=== PATIENT | female | born 1995 | race Caucasian/White ===

== ENCOUNTER 2019-06-26 22:46 | Emergency (ER) | payer OTHER, MEDICAID, SELFPAY ==
[2019-06-26 22:59] VITALS: BP 122/66; PULSE 112; RESP 16; TEMP 37.1; O2SAT 100
[2019-06-27] VITALS: BP 116/73; PULSE 108; RESP 20; TEMP 36.8; O2SAT 98
--- NOTE | 2019-06-27 00:21 | ED.GENADULT ---
HPI - General Adult General Chief complaint: Upper Respiratory Infection Stated complaint: WELCH, ST, cough x 2 weeks Time Seen by Provider: 06/27/19 00:20 Source: patient Mode of arrival: ambulatory Limitations: no limitations History of Present Illness HPI narrative: Patient is here for cold symptoms and nasal congestion. She has been taking [id number] DayQuil. She is complaining of 2 weeks of intermittent hot flashes and cough. She is 26 weeks and will have her first OB appointment here next week prior to that she is that had received care in [facility]. She has not had fever she is eating and drinking just fine. And she reports that the baby is quite active. Onset (ago): day(s) Radiation: non-radiation Associated symptoms: denies other symptoms Related Data Allergies Allergy/AdvReac Type Severity Reaction Status Date / Time No Known Allergies Allergy Verified 05/10/19 23:16 Review of Systems Review of Systems: All systems reviewed & are unremarkable except as noted in HPI and below PMFSH Past Medical History Medical History Healthy adolescent Surgical History Surgical History No pertinent past surgical history Social History Social History Smoking status: Former smoker Gender identity (if verbalized by the patient): Female Exam Const: General: no acute distress and alert Orientation/consciousness: patient oriented x3 HENMT: Ears: TM's normal bilaterally General nose exam: Abnormal mucous membranes and turbinates present (swollen) erythematous Mouth: Yes moist mucous membranes Throat: posterior oropharynx normal Eyes: Pupils: Equal, round and reactive pupils present Resp: Effort & Inspection: normal respiratory effort Auscultation: clear to auscultation bilaterally Cardio: Rate: regular rate Rhythm: regular rhythm GI: Inspection: other (gravid) Skin: General skin exam: normal color Rashes: no rashes Neuro: General: patient oriented x3 and moves all extremities Extrem: General: normal to inspection Course Vital Signs Vital signs: Vital Signs Temperature 37.1 C 06/26/19 22:59 Pulse Rate 112 H 06/26/19 22:59 Respiratory Rate 16 06/26/19 22:59 Blood Pressure 122/66 06/26/19 22:59 Pulse Oximetry 100 06/26/19 22:59 Temperature 36.8 C 06/27/19 00:00 Pulse Rate 108 H 06/27/19 00:00 Respiratory Rate 20 06/27/19 00:00 Blood Pressure 116/73 06/27/19 00:00 Pulse Oximetry 98 06/27/19 00:00 Medical Decision Making Vital Signs Vital Signs: Vital Signs Temperature 37.1 C 06/26/19 22:59 Pulse Rate 112 H 06/26/19 22:59 Respiratory Rate 16 06/26/19 22:59 Blood Pressure 122/66 06/26/19 22:59 Pulse Oximetry 100 06/26/19 22:59 Temperature 36.8 C 06/27/19 00:00 Pulse Rate 108 H 06/27/19 00:00 Respiratory Rate 20 06/27/19 00:00 Blood Pressure 116/73 06/27/19 00:00 Pulse Oximetry 98 06/27/19 00:00 Lab Data Labs: Influenza A Screen Negative Reference Range: Negative Influenza B Screen Negative Reference Range: Negative Discharge Plan Discharge Clinical Impression: URI (upper respiratory infection) Qualifiers: URI type: unspecified viral URI Qualified Code(s): J06.9 - Acute upper respiratory infection, unspecified Patient Disposition: Home, Self-Care Condition: Stable Instructions: Antibiotic Form, Cold Symptoms (ED) Additional Instructions: You can take Sudafed for your nasal congestion, use saline nasal spray and a steroid nasal spray such as Flonase or Nasacort. Follow-up with your OB sooner if needed. Return to the emergency room should you have chest pain or shortness of breath. Stay well-hydrated. Follow-up/Referrals: UNKNOWN,DOCTOR [Primary Care Provider] - Vernace,
[2019-06-27 01:00] VITALS: O2SAT 98
[2019-06-27 01:19] VITALS: BP 103/59; PULSE 101; RESP 18; O2SAT 100
== END 2019-06-27 01:23 | disposition home or self-care (01) ==
PROVIDERS: Emergency Provider Emergency Medicine
DX: J06.9 Acute upper respiratory infection, unspecified (principal); Z87.891 Personal history of nicotine dependence
CPT/HCPCS: 87804; 99283

== ENCOUNTER 2019-08-18 12:34 | Outpatient (RCR) | payer OTHER, BC, SELFPAY ==
[2019-08-18 13:21] VITALS: BP 105/71; PULSE 83
== END 2019-08-29 08:33 | disposition home or self-care (01) ==
LOC: ANHOBOP 12:34
PROVIDERS: Family Provider Obstetrics & Gynecology; Visit Provider Obstetrics & Gynecology
DX: O26.03 Excessive weight gain in pregnancy, third trimester (principal); Z3A.37 37 weeks gestation of pregnancy
CPT/HCPCS: 59025

== ENCOUNTER 2019-08-27 09:05 | Inpatient (IN) | payer OTHER, BC, SELFPAY ==
[2019-08-27] VITALS (23 sets, daily range): BP systolic 105–137; BP diastolic 54–87; PULSE 54–76; RESP 14–16; TEMP 36.2–36.9; O2SAT 99–100; BMI 44.0
[2019-08-27] MEDS: AMPICILLIN 2 GM/NS 100 ML 2 GM/100 ML BAG IVPB (09:49)
[2019-08-27] MEDS: LACTATED RINGERS 1,000 ML 125 ML IV CONT (09:50)
[2019-08-27 09:51] LABS: Basophils Percent Auto 0.5 % (0.2-1.2); Eosinophils Absolute Auto 0.1 K/mm3 (0-0.3); Eosinophils Percent Auto 0.8 % (0-4.4); Hematocrit 41.8 % (37.0-47.0); Hemoglobin 14.4 g/dL (12.0-15.0); Immature Granulocyte Absolute 0.04 K/mm3 (0.00-0.031); Immature Granulocyte Percent A 0.5 % (0-0.5); Lymphocytes Absolute Auto 2.29 K/mm3 (0.9-3.2); Lymphocytes Percent Auto 26.5 % (18.3-44.2); Mean Corpuscular HGB Conc 34.4 g/dl (32-36); Mean Corpuscular Hemoglobin 31.2 pg (26-34); Mean Corpuscular Volume 90.5 fl (80-100); Mean Platelet Volume 10.9 fl (7.4-10.4); Monocytes Absolute Auto 0.7 K/mm3 (0.1-0.6); Monocytes Percent Auto 8.3 % (2.6-8.5); Neutrophils Absolute Auto 5.5 K/mm3 (1.3-6.7); Neutrophils Percent Auto 63.4 % (45.5-73.1); Platelet Count Result 232 k/mm3 (150-375); Red Blood Count 4.62 M/mm3 (4.2-5.4); Red Cell Distribution Width 13.4 % (11.5-14.5); White Blood Count 8.7 K/mm3 (4.5-10.0)
--- NOTE | 2019-08-27 10:14 | LDADM ---
This patient, Bri Sorenson, was admitted to Labor/Delivery/Recovery 106 on 08/27/19 at 09:05. Plans for labor, pain management and were discussed with patient. Patient/family oriented to hospital policies and general routines including ID bracelet, bed and alarms, visiting hours, pain management, procedures, bathroom and other care routines, personal items, smoking policy, room service/diet and guest tray routines, infant security routines, and visiting hours. Patient/Family are encouraged to report perceived risks to care and to ask questions if they do not understand what they are told or what they should do. See OBIX for further documentation.
[2019-08-27] MEDS: OXYTOCIN 30 UNITS/NS 500 ML 30 UNITS/500 ML BAG IV CONT (12:29)
[2019-08-27] MEDS: ONDANSETRON INJ 4 MG/2 ML VIAL IV PUSH (12:38)
[2019-08-27] MEDS: AMPICILLIN 1 GM/NS 50 ML 1 GM/50 ML BAG IVPB (13:18)
--- NOTE | 2019-08-27 13:47 | PM.OBPRVD ---
OB - Delivery Note Procedure Delivery date: 08/27/19 Procedure: vaginal delivery Induction method: none Delivery augmentation: rupture of membranes and pitocin Delivery monitor: external FHT and external uterine Route of delivery: Laceration description: Perineal - 1st Degree Delivery repair: vicryl Specimen: No Estimated blood loss (mL): 110 Anesthesia type: Local Disposition: other () Complications: mother and baby in stable condition Baby Date of : 08/27/19 Time of : 13:36 Weeks of gestation at delivery: 38 Infant gender: Female Weight (pounds): 7 Weight (ounces): 6 presentation: vertex position: Left Occiput Anterior Placenta delivery description: Spontaneous cord vessel description: 3 Vessels
[2019-08-27] MEDS: IBUPROFEN 600 MG TABLET PO ×2 (14:18→22:41)
[2019-08-27] MEDS: OXYTOCIN 30 UNITS/NS 500 ML 30 UNITS/500 ML BAG 125 UNITS IV CONT (14:19)
[2019-08-27] MEDS: WITCH HAZEL 40 PADS 1 PAD TOPICAL (15:24)
[2019-08-27] MEDS: BENZOCAINE 20% AER SPR (*SP) 56 GM CAN 1 SPRAY TOPICAL (15:24)
[2019-08-28] MEDS: IBUPROFEN 600 MG TABLET PO ×3 (04:57→22:55)
[2019-08-28 05:17] LABS: Hematocrit 36.7 % (37.0-47.0); Hemoglobin 12.7 g/dL (12.0-15.0)
[2019-08-28] MEDS: MULTIVIT/MIN/PREN/FOL AC/IRON TABLET 1 TAB PO (07:34)
[2019-08-28 07:40] LABS: Rapid Plasma Reagin Non-Reactive (NonReactive)
--- NOTE | 2019-08-28 08:15 | PM.OBPNVD ---
OB - PN: Subj Subjective Date/time seen: 08/28/19 08:15 Patient comments: no complaints, pain well controlled and other (Lochia similar to menses) [place] baby status: doing well OB - PN: Obj Data Labs CBC & Chem 7: 08/28/19 04:53 Labs: Laboratory Results - last 24 hr 08/27/19 08/27/19 08/27/19 09:42 09:42 09:42 WBC 8.7 RBC 4.62 Hgb 14.4 Hct 41.8 MCV 90.5 MCH 31.2 MCHC 34.4 RDW 13.4 Plt Count 232 MPV 10.9 H Immature Gran % (Auto) 0.5 Neut % (Auto) 63.4 Lymph % (Auto) 26.5 [place] % (Auto) 8.3 Eos % (Auto) 0.8 Baso % (Auto) 0.5 Lymph # (Auto) 2.29 [place] # (Auto) 0.7 H Eos # (Auto) 0.1 Baso # (Auto) 0.0 Abs Immat Gran (auto) 0.04 H Absolute Neuts (auto) 5.5 Absolute Nucleated RBC 0.0 Nucleated RBC % 0.0 RPR Non-reactive Blood Type A Positive Antibody Screen Negative 08/28/19 04:53 WBC RBC Hgb 12.7 Hct 36.7 L MCV MCH MCHC RDW Plt Count MPV Immature Gran % (Auto) Neut % (Auto) Lymph % (Auto) [place] % (Auto) Eos % (Auto) Baso % (Auto) Lymph # (Auto) [place] # (Auto) Eos # (Auto) Baso # (Auto) Abs Immat Gran (auto) Absolute Neuts (auto) Absolute Nucleated RBC Nucleated RBC % RPR Blood Type Antibody Screen OB - PN A/P Plan day: 1 (s/p vaginal delivery, doing well) Plan: routine care Time Spent With Patient Time: Total time spent is greater than 50% in coordination of care (as documented) at patient's floor/unit and/or counseling patient: Exam Const: General: no acute distress GI: Inspection: other (Fundus firm and nontender at umbilicus) GI Palp: Yes Soft to palpation and No Tenderness to palpation present (GI) Extrem: General: no edema
[2019-08-28 08:25] VITALS: BP 129/80; PULSE 64; RESP 18; TEMP 36.8; O2SAT 98
[2019-08-28] MEDS: ACETAMINOPHEN 325 MG TABLET 650 MG PO (08:58)
--- NOTE | 2019-08-28 12:15 | PC.NURSE ---
Mother called out for assist with feeding, reporting discomfort with latch and feeding. Mother has infant to breast in cradle with a shallow latch and infant head turned with chin to chest. Reviewed infant feeding cues, frequencies, duration of feedings, feeding elimination flow sheet, and signs of adequate intake. Demonstrated stimulation techniques to wake for feeding. Assisted with infant to breast. Reviewed positioning/alignment in cross cradle, holding breast in U hold and guided asymmetrical latch on. Discussed rational for each. was able to latch correctly. Infant nursed eagerly, with steady draws and frequent swallowing noted. Reviewed signs of a correct latch, effective nursing and suck swallow ratio. Mother reports much less discomfort with this feeding. Infant was able to maintain latch without discomfort to mother. Nipple care reviewed. Instructed mother to call out for RN assistance if she is unable to latch infant for feeding or she has discomfort with nursing. Instructed feeding should be initiated three hours from start of last feeding or if feeding cues are noted before. Mother voiced understanding of information shared.
[2019-08-29] MEDS: IBUPROFEN 600 MG TABLET PO (06:57)
[2019-08-29] MEDS: MULTIVIT/MIN/PREN/FOL AC/IRON TABLET 1 TAB PO (06:57)
--- NOTE | 2019-08-29 07:30 | PM.OBPNVD ---
OB - PN: Subj Subjective Date/time seen: 08/29/19 07:30 Patient comments: no complaints, pain well controlled and other (Lochia similar to menses) [place] baby status: doing well OB - PN: Obj Data Labs CBC & Chem 7: 08/28/19 04:53 Labs: Laboratory Results - last 24 hr 08/27/19 09:42 RPR Non-reactive OB - PN A/P Plan day: 2 (s/p vaginal delivery, doing well) Plan: routine care, discharge home and other (Follow up in office in 4 weeks) Time Spent With Patient Time: Total time spent is greater than 50% in coordination of care (as documented) at patient's floor/unit and/or counseling patient: Exam Const: General: no acute distress GI: Inspection: other (Fundus firm and nontender below umbilicus) GI Palp: Yes Soft to palpation and No Tenderness to palpation present (GI) Extrem: General: no edema
[2019-08-29 08:05] VITALS: BP 101/62; PULSE 54; RESP 18; O2SAT 98
[2019-08-30 10:31] VITALS: BP 115/76; PULSE 59; RESP 14; TEMP 36.8
--- NOTE | 2019-08-31 01:08 | P.DS_ITS ---
OB - DS: Summary OB Procedures : None OB Procedures Intrapartum: Spontaneous Vag Delivery OB Procedures: : None Time Spent with Patient Time attestation: Total time spent providing and/or coordinating discharge services: Discharge Plan Discharge Consulting providers: Stephanie Peoples Discharging Clinician: Stephanie Peoples Patient Disposition: Home, Self-Care Activity: may shower, no straining, as tolerated, follow weight bearing status and pelvic rest Diet: regular Discharge Instructions: Education: Mom and Baby Guide Given to: Mother Follow-Up: Call your delivering provider's office for an appointment to be seen in: 4 Weeks Mom and baby should come to the [facility] for the follow-up appointment. Appointment Date/Time: August 30, 2019 at 10:00 am What to expect at your follow-up visit: Physical Assessment Call [phone] if you are unable to keep your appointment time. BREAST CARE: 1. Wear a snug supportive bra. 2. For engorgement discomfort: Breast Feeding: A. Apply warm moist washcloths B. Express milk as needed to relieve engorgement C. Wear loose clothing 3. For sore nipples: A. Identify correct latch-on B. Apply warm moist washcloths before and after nursing C. Air dry nipples after nursing D. May apply Lansinoh cream to nipples EPISIOTOMY/PERINEAL CARE: 1. Until bleeding stops, use your neftaly bottle after urinating 2. Change your pad frequently throughout the day 3. You may take sitz baths several times a day (fill your bathtub with warm water and soak for 20 minutes.) Do NOT bathe in the water 4. No tub baths until seen by your physician - You may shower ACTIVITY: 1. Rest as much as possible. 2. Do not exercise or lift anything heavier than your baby (such as laundry or other children.) 3. Avoid stairs or driving as much as possible. 4. Do not put anything into the vagina. No douching, tampons, or sexual activity until seen by physician. NOTIFY PHYSICIAN IF YOU HAVE ANY QUESTIONS OR IF ANY OF THE FOLLOWING SYMPTOMS OCCUR: 1. If your episiotomy becomes red, swollen, or more painful than what you have experienced in the hospital. 2. If your vaginal bleeding becomes foul smelling. 3. If your vaginal bleeding becomes more heavy than a period or if your bleeding changes from pink to bright red. However, you may pass an occasional walnut- sized clot once or twice for the first week . 4. If you experience a sharp, shooting pain in you calves. 5. If you discover a hard, reddened area on your breast or if you experience flu-like symptoms. DIET: 1. Eat regular, well-balanced meals. 2. Drink plenty of fluids daily. If , drink to thirst. Stand Alone Forms: General Discharge Information Follow-up/Referrals: Stephanie Peoples CNM [Certified Nurse Institutional Asset Manager] - Discharge Medications: New ibuprofen 600 mg Tablet 600 mg PO Q6H PRN (Reason: Cramping) Qty: 60 RF: 0 Continued PNV [id number] fumarate-FA [] 28 mg iron- 800 mcg Tablet 1 tablet PO DAILY RF: 0 Date of admission: 08/27/19 09:05 Primary Care Provider: UNKNOWN,DOCTOR Admitting Provider: Lily Youssef Discharge Date/Time: 08/29/19 10:27 Attending physician on admission: Lily Youssef
== END 2019-08-29 10:27 | disposition home or self-care (01) | DRG 807 ==
LOC: ANHLDR 09:23 → ANHOB2 17:24
PROVIDERS: Advanced Practice Midwife; Admitting Provider Obstetrics & Gynecology; Visit Provider Obstetrics & Gynecology
DX: O99.824 Streptococcus B carrier state complicating childbirth (principal); Z37.0 Single live birth; Z3A.38 38 weeks gestation of pregnancy; O70.0 First degree perineal laceration during delivery
CPT/HCPCS: 36415; 85014; 85018; 85025; 86592; 86850; 86900; 86901; A9270; J0290; J2405; J2590; J3010; J7120

== ENCOUNTER 2020-04-20 12:10 | Emergency (ER) | payer OTHER, BC, SELFPAY ==
[2020-04-20 12:21] VITALS: BP 135/78; PULSE 92; RESP 18; TEMP 36.3; O2SAT 99
--- NOTE | 2020-04-20 12:48 | ED.GENADULT ---
HPI - General Adult General Chief complaint: Extremity Injury, Upper Stated complaint: Shoulder Pain Time Seen by Provider: 04/20/20 12:26 Source: patient and RN notes reviewed Mode of arrival: ambulatory Limitations: no limitations History of Present Illness HPI narrative: Patient presents today complaining of severe left shoulder pain since yesterday. Denies injury. States she was not doing any heavy lifting or exertional activities when the pain started suddenly. She is pain-free at rest, but increases severely with movement. She has tried Tylenol, Aleve, and ibuprofen without relief. Denies numbness or tingling in the arm or hand currently. She is right-hand dominant. In the exam room she has an infant and car seat, but states she carries the in her right arm. MD complaint: Left shoulder pain Related Data Allergies Allergy/AdvReac Type Severity Reaction Status Date / Time No Known Allergies Allergy Verified 08/07/19 14:58 Review of Systems Review of Systems: Narrative: CONSTITUTIONAL: Denies body aches, fever, chills, or sweats. EYES: Denies visual changes, redness, or discharge. ENT: Denies rhinorrhea, congestion, sore throat, or otalgia. CARDIOVASCULAR: Denies chest pain, palpitations, or edema. RESPIRATORY: Denies cough or dyspnea. GASTROINTESTINAL: Denies abdominal pain, nausea, vomiting, or diarrhea. GENITOURINARY: Denies dysuria or hematuria. SKIN: Denies rash, itching, or wounds. MUSCULOSKELETAL: Denies back pain, or myalgia. + Left shoulder pain NEUROLOGIC: Denies headache, numbness, tingling, or weakness. PSYCH: Denies depression or anxiety. [facility] Past Medical History Medical History (Updated 04/20/20 @ 12:49 by Janell Gambino, [facility], ) Healthy adolescent Surgical History Surgical History No pertinent past surgical history Family History Family History (Updated 08/07/19 @ 15:01 by Leyla Schwartz RN) Grandparent Diabetes mellitus Social History Social History Smoking status: Light tobacco smoker Tobacco type: cigarettes Second hand tobacco smoke exposure: No Substance use: never Gender identity (if verbalized by the patient): Female Spiritual care concerns: No Comments At time of signature, I have reviewed and agree with nursing past medical, surgical, social and family history unless otherwise noted. Please see nursing chart for further information. There is no relevant family history pertinent to the presenting complaint Exam Narrative: Exam Narrative: GENERAL: Well-appearing, well-nourished, and in no acute distress. HEAD: Normocephalic, atraumatic. EYES: EOMI. No redness or drainage. Conjunctivae normal. ENT: Mucous membranes pink and moist. NECK: Normal AROM. Nontender. Supple. No lymphadenopathy. CHEST: No respiratory distress. MUSCULOSKELETAL: No bony tenderness. EXTREMITIES: Left shoulder: Left shoulder is nontender. With active anterior abduction, patient grimaces in severe pain and reports numbness to the palm of her hand and all fingers at 90 degrees. Pain with AROM in all directions. Full AROM except almost full AROM with internal rotation. No edema, deformity, erythema, ecchymosis noted. Distal sensation intact. Capillary refill normal. Radial pulse normal. Full AROM of all fingers and wrist as well as elbow. SKIN: Warm, dry, no rash. Capillary refill normal. Normal skin turgor. NEURO: No focal deficits. Alert and oriented x3. Gait steady. PSYCH: Normal affect. No signs of depression or anxiety. Course Vital Signs Vital signs: Vital Signs Temperature 97.4 F L 04/20/20 12:21 Pulse Rate 92 04/20/20 12:21 Respiratory Rate 18 04/20/20 12:21 Blood Pressure 135/78 04/20/20 12:21 Pulse Oximetry 99 04/20/20 12:21 Temperature 97.4 F L 04/20/20 12:21 Pulse Rate 92 04/20/20 12:21 Respiratory Rate 18 1
== END 2020-04-20 12:54 | disposition home or self-care (01) ==
PROVIDERS: Emergency Provider Nurse Practitioner
DX: M25.512 Pain in left shoulder (principal); F17.210 Nicotine dependence, cigarettes, uncomplicated
CPT/HCPCS: 99213; G0463

== ENCOUNTER 2021-12-29 15:20 | Emergency (ER) | payer OTHER, SELFPAY ==
--- NOTE | ~2021-12-29 | CT_ITS ---
EXAMINATION: CT abdomen pelvis w con DATE: 12/29/2021 18:24 INDICATION: abd pain TECHNIQUE: Computed tomography (CT) of the abdomen and pelvis was performed with 100 mL Omnipaque-350 intravenous contrast. Automated exposure control and iterative reconstruction technique were employe d. The dose-length product was 1618.01 mGy-cm. COMPARISON: None. FINDINGS: Lower thorax: Unremarkable Liver: Normal. Biliary/Gallbladder: Gallbladder is normal. No bile duct dilation. Pancreas: No mass or duct dilation. Spleen: Normal. Adrenals:No mass. Kidneys: 7 mm nonobstructive left inferior pole calculus. No suspicious mass. No hydronephrosis. GI tract: No small or large bowel dilation. Normal appendix. Mesentery/Peritoneum: No ascites, mass, or free air. Retroperitoneum: No mass. Pelvis: IUD, in good position. 4.6 cm simple appearing right ovarian cyst. Small volume free pelvic f luid, within physiologic range. Soft Tissues: Soft tissues and body wall unremarkable. Bones: No acute osseous finding. IMPRESSION: No acute abdominopelvic process. Nonobstructive left nephrolithiasis. 4.6 cm simple appearing right o varian cyst. Reviewed, dictated and finalized at location K. IMPRESSION: No acute abdominopelvic process. Nonobstructive left nephrolithiasis. 4.6 cm si mple appearing right ovarian cyst.
[2021-12-29 15:36] VITALS: BP 137/79; PULSE 99; RESP 16; TEMP 36.2; O2SAT 99
[2021-12-29 15:53] LABS: Basophils Percent Auto 0.5 % (0.2-1.2); Eosinophils Absolute Auto 0.2 K/mm3 (0-0.3); Eosinophils Percent Auto 1.8 % (0-4.4); Hematocrit 46.1 % (37.0-47.0); Hemoglobin 15.6 g/dL (12.0-15.0); Immature Granulocyte Absolute 0.04 K/mm3 (0.00-0.031); Immature Granulocyte Percent A 0.5 % (0-0.5); Lymphocytes Absolute Auto 2.54 K/mm3 (0.9-3.2); Lymphocytes Percent Auto 29.4 % (18.3-44.2); Mean Corpuscular HGB Conc 33.8 g/dl (32-36); Mean Corpuscular Hemoglobin 30.4 pg (26-34); Mean Corpuscular Volume 89.7 fl (80-100); Mean Platelet Volume 9.7 fl (7.4-10.4); Monocytes Absolute Auto 0.8 K/mm3 (0.1-0.6); Monocytes Percent Auto 9.4 % (2.6-8.5); Neutrophils Absolute Auto 5.1 K/mm3 (1.3-6.7); Neutrophils Percent Auto 58.4 % (45.5-73.1); Platelet Count Result 249 k/mm3 (150-375); Red Blood Count 5.14 M/mm3 (4.2-5.4); Red Cell Distribution Width 13.3 % (11.5-14.5); White Blood Count 8.7 K/mm3 (4.5-10.0)
[2021-12-29 16:03] LABS: Alanine Aminotransferase 18 U/L (6-35); Alkaline Phosphatase 52 U/L (38-126); Anion Gap 7 mmol/L (8-16); Aspartate Amino Transferase 19 U/L (14-36); Bilirubin,Total 0.4 mg/dL (0.2-1.3); Blood Urea Nitrogen 10 mg/dL (7-17); Calcium 9.2 mg/dL (8.4-10.2); Carbon Dioxide 23 mmol/L (22-30); Chloride 104 mmol/L (98-107); Estimated CRCL calculation 144 ml/min; Estimated Glomerular Filt Rate > 60; Glucose 108 mg/dL (65-110); Lipase 47 U/L (23-300); Potassium 4.1 mmol/L (3.4-5.0); Sodium 134 mmol/L (137-145)
--- NOTE | 2021-12-29 17:16 | ED.ABDPAIN ---
HPI - Abdominal Pain General Chief Complaint: Abdominal Pain Stated Complaint: abd pain Time Seen by Provider: 12/29/21 16:50 Source: RN notes reviewed History of Present Illness HPI narrative: Patient presents emergency room from home for abdominal pain. Patient states pain began approximately 2 hours ago the pain is located in the bilateral lower abdomen radiates around to the back pain is described as sharp and stabbing in nature. She denies any fevers or chills nausea vomiting diarrhea or any other symptoms. States she did not take any medication for the pain Related Data Allergies Allergy/AdvReac Type Severity Reaction Status Date / Time No Known Allergies Allergy Verified 12/29/21 17:12 Review of Systems Review of Systems: Gen.: Denies fevers or chills ENT: Denies congestion Respiratory: Denies shortness of breath or cough CV: Denies chest pain or palpitations GI: See HPI denies burning, urgency, frequency or hematuria Musculoskeletal: Denies back pain or muscle pain Neuro: Denies numbness, tingling, weakness or focal weakness Skin: Denies rash Except as documented, all other systems reviewed and negative [facility] Past Medical History Medical History (Updated 12/29/21 @ 18:38 by Slim Ahumada DO) Healthy adolescent Surgical History Surgical History No pertinent past surgical history Family History Family History (Updated 08/07/19 @ 15:01 by Leyla Schwartz RN) Grandparent Diabetes mellitus Social History Social History Smoking status: Light tobacco smoker Tobacco type: cigarettes Second hand tobacco smoke exposure: No Substance use: never Gender identity (if verbalized by the patient): Female Spiritual care concerns: No Exam Narrative: APPEARANCE: No acute distress, nontoxic, resting in bed HEENT: Normocephalic, atraumatic, OMM RESPIRATORY: No respiratory distress, clear to auscultation bilaterally with no rhonchi wheezing or rales CARDIOVASCULAR: RRR s murmur ABDOMINAL: Soft nondistended tender palpation right lower quadrant left lower quadrant no tenderness right upper quadrant with no rebound or guarding MUSCULOSKELETAl: Moves all extremities. No clubbing, cyanosis or edema. NEURO: Awake and alert. Following commands, speech normal, no focal deficits SKIN:: Warm, dry. Normal Color PSYCHIATRIC: Normal affect/mood Course Course Emergency Course: Patient states that they are feeling much better at this time. States abdominal pain has improved. Repeat abdominal exam shows the patient's abdomen to be soft and nontender. Discussed with patient results of workup and diagnosis. Discussed need for follow-up with primary care physician, reasons to return to the emergency department in proper use of medication. Patient understands and agrees to current treatment plan discussed with patient variances she states she follows with Dr. Peoples and will follow as an outpatient Vital Signs Vital signs: Vital Signs Temperature 97.1 F L 12/29/21 15:36 Pulse Rate 99 12/29/21 15:36 Respiratory Rate 16 12/29/21 15:36 Blood Pressure 137/79 12/29/21 15:36 Pulse Oximetry 99 12/29/21 15:36 Oxygen Delivery Room Air 12/29/21 15:36 Temperature 97.1 F L 12/29/21 15:36 Pulse Rate 99 12/29/21 15:36 Respiratory Rate 16 12/29/21 15:36 Blood Pressure 137/79 12/29/21 15:36 Pulse Oximetry 99 12/29/21 15:36 Oxygen Delivery Room Air 12/29/21 15:36 MDM - Abdominal Pain MDM Narrative Medical decision making narrative: Patient's abdomen is soft without significant pain or signs of surgical abdomen on serial exams. Lab and x-ray evaluations are reviewed and patient is felt to be a reasonable candidate for outpatient management. Patient was instructed as to limitations of x-ray and laboratory evaluation and encouraged to return to ED or primary physician for r
[2021-12-29] MEDS: KETOROLAC 30 MG/ML VIAL (*BKC) IV PUSH (17:17)
[2021-12-29] MEDS: SODIUM CHLORIDE 0.9% IV 1,000 ML 999 ML IV CONT (17:18)
[2021-12-29 18:24] LABS: Appearance Urine Slightly Cloudy (Clear); Bilirubin Urine 1+ (Negative); Blood Urine Negative (Negative); Color Urine Yellow (Yellow); Glucose Urine UA Negative (Negative); Ketones Urine Trace mg/dL (Negative); Leukocyte Esterase Ur Negative LEU/UL (Negative); Nitrate Urine Negative (Negative); Protein Urine Trace mg/dL (Negative); pH Urine 8.5 (5.0-9.0)
[2021-12-29 18:29] LABS: Bacteria Urine Trace /hpf; Budding Yeast Urine Present /hpf; Mucus Urine Rare /lpf; Squamous Epithelial Cell Urine Moderate /hpf (Few)
[2021-12-29 18:35] LABS: Add Urine Microscopic? YES
== END 2021-12-29 19:05 | disposition home or self-care (01) ==
PROVIDERS: Emergency Provider Emergency Medicine
DX: N83.201 Unspecified ovarian cyst, right side (principal); R10.30 Lower abdominal pain, unspecified
CPT/HCPCS: 36415; 74177; 80053; 81001; 81025; 83690; 85025; 96374; 99284; J1885; J7030; Q9967

== ENCOUNTER 2023-03-12 09:12 | Emergency (ER) | payer OTHER, SELFPAY ==
[2023-03-12 09:25] VITALS: BP 122/74; PULSE 69; RESP 16; TEMP 37.1; O2SAT 99
--- NOTE | 2023-03-12 09:55 | ED.URI ---
HPI - URI/Sore Throat General Chief Complaint: Upper Respiratory Infection Stated Complaint: loss of voice,cough,ears blocked Time Seen by Provider: 03/12/23 09:45 Source: patient and RN notes reviewed Mode of arrival: ambulatory Limitations: no limitations History of Present Illness HPI Narrative: Patient presents today with a 2-3 day history of fullness in the ears, slight cough, postnasal drip, and hoarseness. Denies fever, shortness of breath. She has tried no [id number] treatment prior to arrival. Related Data Home Medications Medication Instructions Recorded Confirmed melatonin 5 mg tablet 5 mg PO HS 03/12/23 03/12/23 Allergies Allergy/AdvReac Type Severity Reaction Status Date / Time No Known Allergies Allergy Verified 03/12/23 09:40 Review of Systems Review of Systems: CONSTITUTIONAL: Denies body aches, fever, chills, or sweats. EYES: Denies visual changes, redness, or discharge. ENT: Denies rhinorrhea, congestion, sore throat. + hoarseness, postnasal drip, ear fullness CARDIOVASCULAR: Denies chest pain, palpitations, or edema. RESPIRATORY: Denies dyspnea.+ the cough GASTROINTESTINAL: Denies abdominal pain, nausea, vomiting, or diarrhea. GENITOURINARY: Denies dysuria or hematuria. SKIN: Denies rash, itching, or wounds. MUSCULOSKELETAL: Denies back pain, joint pain, or myalgia. NEUROLOGIC: Denies headache, numbness, tingling, or weakness. PSYCH: Denies depression or anxiety. [facility] Past Medical History Medical History (Updated 03/12/23 @ 09:59 by Janell Gambino, ARMAND, ) Healthy adolescent Surgical History Surgical History No pertinent past surgical history Family History Family History Grandparent Diabetes mellitus Social History Social History Smoking status: Light tobacco smoker Tobacco type: cigarettes Second hand tobacco smoke exposure: No Substance use: never Gender identity (if verbalized by the patient): Female Spiritual care concerns: No Comments At time of signature, I have reviewed and agree with nursing past medical, surgical, social and family history unless otherwise noted. Please see nursing chart for further information. There is no relevant family history pertinent to the presenting complaint Exam Narrative: GENERAL: Well-appearing, well-nourished, and in no acute distress. HEAD: Normocephalic, atraumatic. EYES: EOMI. No redness or drainage. Conjunctivae normal. ENT: Mucous membranes pink and moist. Nares clear. No rhinorrhea. Bilateral middle ear effusions without evidence of bacterial infection.. Throat normal. Uvula midline. NECK: Normal AROM. Supple. No lymphadenopathy. CHEST: No respiratory distress. Clear to auscultation. HEART: Regular rate and rhythm. No murmur appreciated. EXTREMITIES: Normal range of motion. No edema. SKIN: Warm, dry, no rash. Capillary refill normal. Normal skin turgor. NEURO: No focal deficits. Alert and oriented x3. Gait steady. PSYCH: Normal affect. No signs of depression or anxiety. Course Course Level of Care: Express Care Visit Vital Signs Vital signs: Vital Signs Temperature 98.7 F 03/12/23 09:25 Pulse Rate 69 03/12/23 09:25 Respiratory Rate 16 03/12/23 09:25 Blood Pressure 122/74 03/12/23 09:25 Pulse Oximetry 99 03/12/23 09:25 Oxygen Delivery Room Air 03/12/23 09:25 Temperature 98.7 F 03/12/23 09:25 Pulse Rate 69 03/12/23 09:25 Respiratory Rate 16 03/12/23 09:25 Blood Pressure 122/74 03/12/23 09:25 Pulse Oximetry 99 03/12/23 09:25 Oxygen Delivery Room Air 03/12/23 09:25 reviewed MDM - URI/Sore Throat MDM Narrative Medical decision making narrative: Symptoms likely viral in etiology. No testing indicated at this time. No prescription medications indica
== END 2023-03-12 10:08 | disposition home or self-care (01) ==
PROVIDERS: Emergency Provider Nurse Practitioner
DX: J06.9 Acute upper respiratory infection, unspecified (principal); F17.210 Nicotine dependence, cigarettes, uncomplicated
CPT/HCPCS: 99211; G0463

== ENCOUNTER 2023-06-09 17:06 | Emergency (ER) | payer OTHER, SELFPAY ==
--- NOTE | ~2023-06-09 | XR_ITS ---
EXAMINATION: XR thoracic spine 3V, XR lumbar spine 2-3V DATE: 06/09/2023 19:15 INDICATION: Back pain TECHNIQUE: 1. AP, lateral and lateral swimmer's views of the thoracic spine were obtained. 2. AP, lateral and coned-down views of the lumbar spine were obtained. COMPARISON: CT abdomen and pelvis dated 10/29/21 FINDINGS: Normal alignment of the thoracic and lumbar spine. Hypoplastic riblets at T12. L5 is sacralized bilat erally but more cephalad nonrib-bearing lumbar segments. Unchanged chronic minimal likely physiologic anterior wedging at T11 and T12. Remaining vertebral body heights are normal. Mild disc height loss at multiple levels in the thoracic spine. Additional mild disc height loss at L4-L5. Visualized porti ons of the lungs are clear with no pleural effusion or pneumothorax. T-shaped IUD projects over expec vania position in the pelvis. 5 mm stone projects over the lower pole of the left kidney. IMPRESSION: 1. Mild thoracic and lumbar spondylosis. 2. 5 mm left renal stone. 3. IUD in expected position. Reviewed, dictated and finalized at location A. IO TECH IMPRESSION: 1. Mild thoracic and lumbar spondylosis. 2. 5 mm left renal stone. 3. IUD in expected position.
[2023-06-09 17:18] VITALS: BP 120/83; PULSE 127; RESP 20; TEMP 37.1; O2SAT 99
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
[2023-06-09] MEDS: diazePAM INJ (*CRX) 10 MG/2 ML SYRINGE 5 MG IV PUSH (19:25)
[2023-06-09] MEDS: KETOROLAC 30 MG/ML VIAL (*BKC) IV PUSH (19:25)
[2023-06-09 19:33] LABS: Basophils Percent Auto 0.2 % (0.2-1.2); Hematocrit 48.1 % (37.0-47.0); Immature Granulocyte Absolute 0.03 K/mm3 (0.00-0.031); Immature Granulocyte Percent A 0.3 % (0-0.5); Lymphocytes Absolute Auto 0.68 K/mm3 (0.9-3.2); Lymphocytes Percent Auto 7.3 % (18.3-44.2); Mean Corpuscular HGB Conc 33.3 g/dl (32-36); Mean Corpuscular Hemoglobin 29.6 pg (26-34); Mean Corpuscular Volume 88.9 fl (80-100); Mean Platelet Volume 9.4 fl (7.4-10.4); Monocytes Absolute Auto 0.5 K/mm3 (0.1-0.6); Monocytes Percent Auto 5.2 % (2.6-8.5); Neutrophils Absolute Auto 8.1 K/mm3 (1.3-6.7); Platelet Count Result 271 k/mm3 (150-375); Red Blood Count 5.41 M/mm3 (4.2-5.4); Red Cell Distribution Width 13.1 % (11.5-14.5); White Blood Count 9.4 K/mm3 (4.5-10.0)
[2023-06-09 19:44] LABS: Alanine Aminotransferase 34 U/L (6-35); Albumin Level 4.1 g/dL (3.5-5.1); Alkaline Phosphatase 67 U/L (38-126); Anion Gap 10 mmol/L (8-16); Aspartate Amino Transferase 23 U/L (14-36); Bilirubin,Total 0.7 mg/dL (0.2-1.3); Blood Urea Nitrogen 12 mg/dL (7-17); Calcium 9.1 mg/dL (8.4-10.2); Carbon Dioxide 21 mmol/L (22-30); Chloride 106 mmol/L (98-107); Estimated CRCL calculation 142 ml/min; Estimated Glomerular Filt Rate > 60; Glucose 116 mg/dL (65-110); Sodium 137 mmol/L (137-145)
[2023-06-09 21:15] VITALS: BP 119/72; PULSE 108; RESP 17; O2SAT 99
== END 2023-06-09 21:17 | disposition home or self-care (01) ==
PROVIDERS: Emergency Provider Emergency Medicine
DX: S39.012A Strain of muscle, fascia and tendon of lower back, initial encounter (principal); M62.830 Muscle spasm of back; M47.816 Spondylosis without myelopathy or radiculopathy, lumbar region; X50.0XXA Overexertion from strenuous movement or load, initial encounter
CPT/HCPCS: 36415; 72072; 72100; 80053; 81025; 85025; 96374; 96375; 99284; J1885; J3360

== ENCOUNTER 2023-06-29 08:22 | Outpatient (CLI) | payer OTHER, SELFPAY ==
[2023-06-29 14:20] LABS: Basophils Absolute Auto 0.1 K/mm3 (0.0-0.1); Basophils Percent Auto 0.8 % (0.2-1.2); Eosinophils Absolute Auto 0.1 K/mm3 (0-0.3); Eosinophils Percent Auto 1.7 % (0-4.4); Hematocrit 45.8 % (37.0-47.0); Immature Granulocyte Absolute 0.01 K/mm3 (0.00-0.031); Immature Granulocyte Percent A 0.2 % (0-0.5); Lymphocytes Absolute Auto 2.83 K/mm3 (0.9-3.2); Lymphocytes Percent Auto 43.5 % (18.3-44.2); Mean Corpuscular HGB Conc 32.8 g/dl (32-36); Mean Corpuscular Hemoglobin 29.7 pg (26-34); Mean Corpuscular Volume 90.7 fl (80-100); Mean Platelet Volume 9.8 fl (7.4-10.4); Monocytes Absolute Auto 0.6 K/mm3 (0.1-0.6); Monocytes Percent Auto 9.2 % (2.6-8.5); Neutrophils Absolute Auto 2.9 K/mm3 (1.3-6.7); Neutrophils Percent Auto 44.6 % (45.5-73.1); Platelet Count Result 329 k/mm3 (150-375); Red Blood Count 5.05 M/mm3 (4.2-5.4); Red Cell Distribution Width 13.2 % (11.5-14.5); White Blood Count 6.5 K/mm3 (4.5-10.0)
[2023-06-29 15:05] LABS: Alanine Aminotransferase 35 U/L (6-35); Albumin Level 3.9 g/dL (3.5-5.1); Alkaline Phosphatase 68 U/L (38-126); Anion Gap 5 mmol/L (8-16); Aspartate Amino Transferase 62 U/L (14-36); Bilirubin,Total 0.6 mg/dL (0.2-1.3); Blood Urea Nitrogen 12 mg/dL (7-17); Calcium 9.2 mg/dL (8.4-10.2); Carbon Dioxide 28 mmol/L (22-30); Chloride 103 mmol/L (98-107); Cholesterol 144 mg/dL (0-200); Estimated Glomerular Filt Rate > 60; Glucose 86 mg/dL (65-110); HDL Direct 37 mg/dL; Potassium 4.4 mmol/L (3.4-5.0); Sodium 136 mmol/L (137-145); Triglycerides 68 mg/dL (<150)
[2023-06-29 15:48] LABS: Hemoglobin A1C 5.1 % (<5.7)
[2023-06-29 17:23] LABS: LDL Cholesterol Direct 88 mg/dL
== END 2023-06-29 08:23 | disposition home or self-care (01) ==
LOC: ANHGOSHLAB 08:24
PROVIDERS: Visit Provider Nurse Practitioner
DX: R73.9 Hyperglycemia, unspecified (principal)
CPT/HCPCS: 36415; 80053; 80061; 83036; 85025

== ENCOUNTER 2023-12-23 15:44 | Outpatient (CLI) | payer OTHER, SELFPAY ==
--- NOTE | ~2023-12-23 | XR_ITS ---
XR hand LT min 3V Ordering provider: Jenna Zuniga NP History: . Pain in left 5TH DIGIT. Possible injury . Comparison: None. FINDINGS: BONES: No acute fracture or dislocation. JOINT SPACES: Possible minimal anterior subluxation of the fifth proximal interphalangeal joint with angulation is seen . SOFT TISSUES: Unremarkable. IMPRESSION: No acute osseous abnormality left hand. Reviewed, dictated and finalized at location A.
[2023-12-23 16:24] LABS: Uric Acid 5.1 mg/dL (2.5-7.5)
== END 2023-12-23 15:45 | disposition home or self-care (01) ==
LOC: ANHIMG 15:46
PROVIDERS: PCP Nurse Practitioner; Visit Provider Nurse Practitioner
DX: M79.645 Pain in left finger(s) (principal)
CPT/HCPCS: 36415; 73130; 84550

== ENCOUNTER 2024-10-04 19:48 | Emergency (ER) | payer OTHER, SELFPAY ==
--- NOTE | ~2024-10-04 | XR_ITS ---
XR wrist RT min 3V Ordering provider: Mateo Medrano MD History: . lateral ulnar pain distal aspect. no trauma . Comparison: None. FINDINGS: BONES: No acute fracture or dislocation. No definite scaphoid fracture. JOINT SPACES: Normal. SOFT TISSUES: Normal. IMPRESSION: No acute osseous abnormality right wrist. Reviewed, dictated and finalized at location A.
--- OUTSIDE RECORDS SUMMARY | 2024-10-04 19:51 | XMS_ITS ---
Author Organization Martir Jain DO [facility] Address [address] [address] Care Team Providers Care Timber Hewer Name Role Phone Cristobal Martir Primary Care Provider [phone] AmandatinMarcial Unavailable [phone] ALLERGIES No Known Allergies RESULTS Component Value Reference Range Notes Pathology Report Reviewed date:09/05/2024 08:00:31 AM Interpretation: Performing Lab:[facility], [address] [place] [address], Phone - [phone], Director - Alia Notes/Report: Clinical Information:[id number] . Material submitted: . back - MID BACK SHAVE BIOPSY. Modifiers: mid . Clinician provided ICD-10: J06.9 . Diagnosis: BENIGN FIBROUS HISTIOCYTOMA (DERMATOFIBROMA). [facility] 09/04/2024 0706 Local . Electronically signed: . Jennifer Funes MD, Dermatopathologist . Gross description: . 1 Container, formalin-filled, labeled with patient identification. MID BACK SHAVE BIOPSY: 1 SHAVE BIOPSY OF BLANTON SKIN MEASURING 1.1 X 0.8 X 0.3 CM. ON THE SURFACE IS A FLAT DARK [place] 0.7 CM LESION. THE LESION APPEARS TO INVOLVE THE MARGIN. THE SURGICAL MARGIN IS INKED BLUE. THE SPECIMEN IS SECTIONED. IT IS SUBMITTED ENTIRELY IN CASSETTE(S) A1. CLAIRE/CLAIRE 09/01/2024 0626 Local . Pathologist provided ICD-10: D23.5 . CPT . 145904 REASON FOR VISIT remove spot on back, still not much better since the beginning of the month when she took abx round MEDICATIONS Medication SIG (Take, Route, Frequency, Duration) Notes Start Date End Date Status CIPROFLOXACIN 500 mg 1 tab(s) orally serena ry 12 hours for 7 days 08/29/2024 Active NAPROXEN 500 mg 1 tab(s) orally 2 times a day for 20 day(s) 11/16/2017 Not-Taking CONTROL PILLS unknown Not-Taking SERTRALINE 50 mg 1 tab(s) orally once a day for 90 days Active SOCIAL HISTORY Tobacco Use: Social History Observation Description Date Details (start date - stop date) Current Smoker NA - NA Sex Assigned At : Social History Observation Description Sex Assigned At Unknown Smoking: Question Answer Notes Are you a: current smoker Additional Findings: Tobacco User e-Cigarette VITAL SIGNS Temperature 98.7 degrees Fahrenheit 08/30/19 25 Blood pressure systolic 112 mm Hg 08/30/19 25 Blood pressure diastolic 64 mm Hg 025 Respiratory Rate 16 /min 08/29/2024 Height 67.5 in 08/29/2024 Weight 249 lbs 08/29/2024 BMI 38.42 kg/m2 08/29/2024 Oximetry 98% RA % 08/29/2024 Encounters Encounter Location Date Provider Diagnosis Martir Jain [facility] [address] [address] 08/29/2024 Marcial Lindsay Upper respiratory tract infection, unspecified type J06.9 and Neoplasm of uncertain behavior of skin of back D48.5 ASSESSMENTS Encounter Date Diagnosis Assessment Notes Treatment Notes Treatment Clinical Notes Section Notes 08/29/2024 Upper respiratory tract infection, unspecified type (ICD-10 - J06.9) Cipro sent in 08/29/2024 Neoplasm of uncertain behavior of skin of back (ICD-10 - D48.5) shave biopsy taken today. tolerated well without complication PLAN OF TREATMENT Medication Medication Name Sig Start Date Stop Date Notes CIPROFLOXACIN 500 mg 1 tab(s) orally serena ry 12 hours for 7 days 08/29/2024 Treatment Notes Assessment Notes Upper respiratory tract infe ction, unspecified type Cipro sent in Neoplasm of uncertain behavi or of skin of back shave biopsy taken today. tolerated well without complication Next Appt Details Follow Up: prn, Reason: Procedure Notes * Category Sub-Category Detail Notes Shave Biopsy Indication Uncertain nature of the lesion Consent All risks, benefits, and potential complications were discussed including bleeding, infection, scarring, and the need for further surgery to improve the resultant scar or to remove a cancerous process. It was explained that this procedure was for diagnostic purposes and was not being performed withthe intention of curing the condition, Verbal consent Location 1, R/O Dysplastic nevus Method The biopsy was taken using the tangential shave technique. The area was first prepped with alcohol and anesthetized with 2% Xylocaine. A flexible blade was used to harvest a sales representative girls' apparel specimen. Monsel's solution was applied to control bleeding. Post-op The likelihood of sc arring and the possibilty of recurrence was reiterated to the patient. The patient is instructed to cleanse the wound twice daily with soap and water or hydrogen peroxide, and then apply a bandage for one week's time. The patient is instructed to notify the office if the wound site(s) ooze, become painful or red. The biopsy specimen was sent to the laboratory for pathological evaluation. We will call the patient in seven to fourteen days with the biopsy results if positive for malignancy. If the biopsy shows a cutaneous malignancy, we will schedule the patient for a consultation to discuss the options of a definative procedure to completely remove the malignancy, band-aid applied Progress Notes * Bri PACHECO LDOB:11/1995 (28 yo F)Acc No.[id number]:08/29/2024 Progress Note Patient: Bri PACHECO Provider: Marcial Lindsay DO :1995 Age:28 Y Sex:Female Date:08/29/2024 Address:[address] [place], [place] [address], [id number] Pcp:Martir Jain Subjective: * Chief Complaints: * 1. Remove spot on back, still not much better since the beginning of the month when she took abx round. * HPI: ENT: COUGH dry cough. EAR PAIN both ears. feels like she is in a bubble. started months ago. failed augmentin. still snotty and congested. HEADACHE sinus headache. SORE THROAT when she woke up. Lesion: right upper back. lesion present 5-6 years. not growing. hard. raised. no drainage. some pain when squeezed or pushed. * ROS: CONSTITUTIONAL: Energy Level normal. no Fever. no Chills. no Sweats. no Night Sweats. * Medical History: Depression, Anxiety. * Family History: Father: alive. Mother: alive. * Social History: Smoking: yes Are you a: nonsmoker, Are you a: current smoker, Additional Findings: Tobacco User e-Cigarette, Additional Findings: Tobacco Non-User Current non-smoker. Advance Directive: no. Alcohol: socially, Type: , Frequency: ,Years: , Determination:. Drug use: no. Exercise: no. Caffeine: yes, frequency: rarely. * Medications: Taking SERTRALINE 50 mg tablet 1 tab(s) orally once a day , Not-Taking CONTROL PILLS unknown unknown , Not-Taking NAPROXEN 500 mg delayed release tablet 1 tab(s) orally 2 times a day , Discontinued AMOXICILLIN-CLAVULANATE 875 mg-125 mg tablet 1 tab(s) orally every 12 hours , Medication List reviewed and reconciled with the patient * Allergies: N.K.D.A. Objective: * Vitals: Temp: 98.7, RR: 16, HR: 107, BP: 112/64, O2 Sat: 98% RA, Ht: 67.5 in, Wt: 249 lbs, BMI:38.42. * Physical Examination: SKIN: General: warm, moist. Skin Lesion(s): right upper back. firm mobile hyperpigmeted nevus. no irregular shape or color irregularity. HEENT: Head: normocephalic, atraumatic. Eyes: unremarkable. Ears: unremarkable. Tympanic membrane(s): bilateral unremarkable. Nose: unremarkable. Mouth: moist mucus membranes. Throat: clear, no erythema or exudate. NECK: Cervical lymph nodes: unremarkable. Thyroid: unremarkable. HEART: Rate: regular. Rhythm: regular. Heart sounds: normal S1S2. Murmurs: none. LUNGS: Auscultation: CTA bilaterally, no wheezing/rhonchi/rales. ABDOMEN: General: soft. Bowel sounds: normoactive. Tenderness: none. Distention: none. Assessment: * Assessment: 1. Upper respiratory tract infection, unspecified type - J06.9 (Primary) 2. Neoplasm of uncertain behavior of skin of back - D48.5 Plan: * Treatment: Notes: Cipro sent in?2.??Neoplasm of uncertain behavior of skin of back?? Start CIPROFLOXACIN tablet, 500 mg, 1 tab(s), orally, every 12 hours, 7 days, 14 Tablet, Refills 0.? Notes: shave biopsy taken today. tolerated well without complication? * Procedures: Shave Biopsy: Indication Uncertain nature of the lesion. Consent All risks, benefits,and potential complications were discussed including bleeding, infection, scarring, and the need for further surgery to improve the resultant scar or to remove a cancerous process. It was explained that this procedure was for diagnostic purposes and was not being performed withthe intention of curing the condition, Verbal consent. Location 1, R/O Dysplastic nevus. Method The biopsy was taken using the tangential shave technique. The area was first prepped with alcohol and anesthetized with 2% Xylocaine. A flexible blade was used to harvest a sales representative girls' apparel specimen. Monsel's solution was applied to control bleeding.. Post-op The likelihood of scarring and the possibilty of recurrence was reiterated to the patient. The patient is instructed to cleanse the wound twice daily with soap and water or hydrogen peroxide, and then apply a bandage for one week's time. The patient is instructed to notify the office if the wound site(s) ooze, become painful or red. The biopsy specimen was sent to the laboratory for pathological evaluation. We will call the patient in seven to fourteen days with the biopsy results if positive for malignancy. If the biopsy shows a cutaneous malignancy, we will schedule the patient for a consultation to discuss the options of a definative procedure to completely remove the malignancy, band-aid applied. * Follow Up: prn * Billing Information: * Visit Code: 39275 Office Visit, Est Pt., Level 4. * Procedure Codes: * Sign off status: Pending * Provider: Marcial Lindsay DO Date: 08/29/2024 History and Physical Notes * HPI (History of Present Illness) Category Sub-Category Detail Notes Category Not es ENT SORE THROAT when she woke up EAR PAIN both ears. feels lik e she is in a bubble. started months ago. failed augmentin. still snotty and congested COUGH dry cough HEADACHE sinus headache Lesion right upper destiney k. lesion present 5-6 years. not growing. hard. raised. no drainage. some pain when squeezed or pushed Physical Examination Category Sub-Category Detail Notes Section Note s HEENT Head: normocephalic, atraumatic Eyes: unremarkable Nose: unremarkable Throat: clear, no erythema o r exudate Tympanic membrane(s): bilateral unremark able Mouth: moist mucus membrane s Ears: unremarkable NECK Thyroid: unremarkable Cervical lymph nodes: unremarkable HEART Rhythm: regular Murmurs: none Heart sounds: normal S1S2 Rate: regular ABDOMEN General: soft Tenderness: none Bowel sounds: normoactive Distention: none SKIN General: warm, moist Skin Lesion(s): right upper back. fi rm mobile hyperpigmeted nevus. no irregular shape or color irregularity LUNGS Auscultation: CTA bilaterally, no wheezin g/rhonchi/rales
--- OUTSIDE RECORDS SUMMARY | 2024-10-04 19:51 | XMS_ITS | Patient Health Record ---
Author Organization [facility] Address [address] [address] Care Team Providers Care Public Works Laborer Name Role Phone CristobalMartir Primary Care Provider Marcial Lindsay Unavailable [phone] Migration, Provider Unavailable Unavailable ALLERGIES No Known Allergies RESULTS Component Value Reference Range Notes Pathology Report Reviewed date:09/05/2024 08:00:31 AM Interpretation: Performing Lab:[facility], [address] [place] [address], Phone - [phone], Director - Alia Notes/Report: Clinical Information:[id number] . Material submitted: . back - MID [...] ON THE SURFACE IS A FLAT DARK [place] 0.7 CM LESION. THE LESION APPEARS TO INVOLVE THE MARGIN. THE SURGICAL MARGIN IS INKED BLUE. THE SPECIMEN IS SECTIONED. IT IS SUBMITTED ENTIRELY IN CASSETTE(S) A1. CLAIRE/CLAIRE 09/01/2024 [facility] Local . Pathologist provided ICD-10: D23.5 . CPT . 209419 REASON FOR REFERRAL No Information MEDICATIONS Medication SIG (Take, Route, Frequency, Duration) Notes Start Date End Date Status Naproxen 500 MG 1 tab(s) orally 2 times a day for 20 day(s) 11/16/2017 Not-Taking Ciprofloxacin HCl 500 MG 1 tab(s) orally every 12 hours for 7 days 08/29/2024 Active Sertraline HCl 50 MG 1 tab(s) orally once a day for 90 days Active CONTROL PILLS UNKNOWN *Please review for potential replacement for e-prescription and drug interaction check* Not-Taking SOCIAL HISTORY Tobacco Use: Social History Observation Description Date Details (start date - stop date) Current Smoker NA - NA Sex Assigned At : Social History Observation Description Sex Assigned At Unknown Smoking: Question Answer Notes Are you a: current smoker Additional Findings: Tobacco User e-Cigarette PROBLEMS Problem Type ICD Code Onset Dates Problem Status W/U Status Risk SNOMED Code Notes Problem Dysmenorrhea (N94.6) Active confirmed 245837260 Problem Hidradenitis suppurativa (L73.2) Active confirmed 92594247 Problem Moderate recurrent major depression (F33.1) Active confirmed 31013438 VITAL SIGNS Temperature 98.7 degrees Fahrenheit 08/29/2024 Respiratory Rate 16 /min 08/29/2024 Blood pressure diastolic 64 mm Hg 08/29/2024 Oximetry 98% RA % 08/29/2024 Height 67.5 in 08/29/2024 Blood pressure systolic 112 mm Hg 08/29/2024 Weight 249 lbs 08/29/2024 BMI 38.42 kg/m2 08/29/2024 Encounters Encounter Location Date Provider Diagnosis Martir Jain [facility] [address] [address] 08/10/2024 Marcial Lindsay Upper respiratory tract infection, unspecified type J06.9 ; Moderate recurrent major depression F33.1 and Neoplasm of uncertain behavior of skin D48.5 [facility] [address] [address] 08/29/2024 Marcial Lindsay Upper respiratory tract infection, unspecified type J06.9 and Neoplasm of uncertain behavior of skin of back D48.5 [facility] [facility] [address] [address] 09/23/2024 Provider Migration Neoplasm of uncertain behavior of skin of back D48.5 ASSESSMENTS Encounter Date Diagnosis Assessment Notes Treatment Notes Treatment Clinical Notes Section Notes 08/29/2024 Upper respiratory tract infection, unspecified type (ICD-10 - J06.9) Cipro sent in 08/29/2024 Neoplasm of uncertain behavior of skin of back (ICD-10 - D48.5) shave biopsy taken today. tolerated well without complication 09/23/2024 Neoplasm of uncertain behavior of skin of back (ICD-10 - D48.5) 08/10/2024 Moderate recurrent major depression (ICD-10 - F33.1) 08/10/2024 Upper respiratory tract infection, unspecified type (ICD-10 - J06.9) 08/10/2024 Neoplasm of uncertain behavior of skin (ICD-10 - D48.5) offered patient biopsy. wants to think about PLAN OF TREATMENT Pending Test Test Name Order Date X ray : Wrist, right 11/16/2017 URINE 04/13/2016 Insurance Providers Payer Name Payer Address Payer Phone Subscriber Number Group Number Insured Name Patient Relationship to Insured Coverage Start Date Coverage End Date [facility] Community Plan [address] [place] [phone] [id number] Bri Goetz Self - patient is the insured MEDICAL (GENERAL) HISTORY Medical History History ICD Code depression anxiety
--- OUTSIDE RECORDS SUMMARY | 2024-10-04 19:51 | XMS_ITS | Clinical Summary ---
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 Gender Identity Not on file Sexual Orientation Not on file Plan of Treatment Health Maintenance Due Date Last Done Comments Hepatitis C Virus (HCV) Screening 1997 TdaP Immunization 1997 Human Papillomavirus (HPV) Immunization (1 - 3-dose series) 2012 Hepatitis B Immunization (1 of 3 - 19+ 3-dose series) 2016 Pap Smear 2018 Influenza Immunization (#1) 2024 SARS-COV-2 Immunization ( season) 2024 Respiratory Syncytial Virus (RSV) Immunization (Adult) (1 - 1-dose 75+ series) 2072 Meningococcal Immunization (ACWY) Aged Out No longer eligible based on patient's age to complete this topic Pneumococcal Immunization Combined Aged Out No longer eligible based on patient's age to complete this topic Rotavirus Immunization Aged Out No lo nger eligible based on patient's age to complete this topic
--- OUTSIDE RECORDS SUMMARY | 2024-10-04 19:51 | XMS_ITS ---
Author Organization Martir Jain DO [facility] Address [address] [address] Care Team Providers Care International Accountant Name Role Phone Martir Jain Primary Care Provider [phone] Migration, Provider Unavailable Unavailable REASON FOR VISIT Multum To Medispan Conversion Encounter MEDICATIONS Medication SIG (Take, Route, Frequency, Duration) [...] for e-prescription and drug interaction check* Not-Taking Encounters Encounter Location Date Provider Diagnosis Martir Jain DO [facility] [address] [address] 09/23/2024 Provider Migration Neoplasm of uncertain behavior of skin of back D48.5 ASSESSMENTS Encounter Date Diagnosis Assessment Notes Treatment Notes Treatment Clinical Notes Section Notes 09/23/2024 Neoplasm of uncertain behavior of skin of back (ICD-10 - D48.5) PLAN OF TREATMENT Medication Medication Name Sig Start Date Stop Date Notes Ciprofloxacin HCl 500 MG 1 tab(s) orally every 12 hours for 7 days 08/29/2024 Progress Notes * Bri PACHECO LDOB:11/1995 (28 yo F)Acc No.[id number]:09/23/2024 Patient: Bri PACHECO Provider: :1995 Age:28 Y Sex:Female Date:09/23/2024 Address:[address] [place] [address] TO, [id number] Pcp:Martir Jain Subjective: * Chief Complaints: * 1. Multum To Medispan Conversion Encounter. * Medical History: * Medications: Taking Sertraline HCl 50 MG Tablet 1 tab(s) orally once a day , Not-Taking CONTROL PILLS UNKNOWN UNKNOWN , Notes to Pharmacist: *Please review for potential replacement for e-prescription and drug interaction check*, Not-Taking Naproxen 500 MG Tablet Delayed Release 1 tab(s) orally 2 times a day Objective: Assessment: * Assessment: 1. Neoplasm of uncertain behavior of skin of back - D48.5 Plan: * Treatment: * Billing Information: * Visit Code: * Procedure Codes: * Sign off status: Pending * Provider: Date: 09/23/2024
--- OUTSIDE RECORDS SUMMARY | 2024-10-04 19:51 | XMS_ITS ---
Author Organization Martir Jain DO [facility] Address [address] [address] Care Team Providers Care Barrel Plater Name Role Phone Martir Jain Primary Care Provider Marcial Lindsay Unavailable [phone] ALLERGIES No Known Allergies REASON FOR VISIT Earache, discuss medications, last seen 2017 MEDICATIONS Medication SIG (Take, Route, Frequency, Duration) Notes Start Date End Date Status AMOXICILLIN-CLAVULANATE 875 mg-125 mg 1 tab(s) orally every 12 hours for 10 day(s) 08/10/2024 Active NAPROXEN 500 mg 1 tab(s) orally 2 ti mes a day for 20 day(s) 11/16/2017 Not-Taking [...] W/U Status Risk SNOMED Code Notes Problem Moderate recurrent major depression (F33.1) Active confirmed 56056247 VITAL SIGNS Temperature 98.6 degrees Fahrenheit 08/11/19 25 Blood pressure systolic 110 mm Hg 08/11/19 25 Blood pressure diastolic 62 mm Hg 025 Respiratory Rate 18 /min 08/10/2024 Height 67.5 in 08/10/2024 Weight 249 lbs 08/10/2024 BMI 38.42 kg/m2 08/10/2024 Oximetry 98% RA % 08/10/2024 Encounters Encounter Location Date Provider Diagnosis Martir Jain DO [facility] [address] [address] 08/10/2024 Marcial Lindsay Upper respiratory tract infection, unspecified type J06.9 ; Moderate recurrent major depression F33.1 and Neoplasm of uncertain behavior of skin D48.5 ASSESSMENTS Encounter Date Diagnosis Assessment Notes Treatment Notes Treatment Clinical Notes Section Notes 08/10/2024 Upper respiratory tract infection, unspecified type (ICD-10 - J06.9) 08/10/2024 Moderate recurrent major depression (ICD-10 - F33.1) 08/10/2024 Neoplasm of uncertain behavior of skin (ICD-10 - D48.5) offered patient biopsy. wants to think about PLAN OF TREATMENT Medication Medication Name Sig Start Date Stop Date Notes AMOXICILLIN-CLAVULANATE 875 mg-125 mg 1 tab(s) orally every 12 hours for 10 day(s) 08/10/2024 SERTRALINE 50 mg 1 tab(s) orally once a day for 90 days Treatment Notes Assessment Notes Neoplasm of uncertain behavior of skin o ffered patient biopsy. wants to think about Next Appt Details Follow Up: 1 Year, Reason: Progress Notes * Bri PACHECO LDOB:11/1995 (28 yo F)Acc No.[id number]:08/10/2024 Progress Note Patient: Bri PACHECO Provider: Marcial Lindsay DO :1995 Age:28 Y Sex:Female Date:08/10/2024 Address:[address] [place] [id number] Pcp:Martir Jain Subjective: * Chief Complaints: * 1. Earache, discuss medications, last seen 2017. * HPI: ENT: COUGH dry cough. EAR PAIN both ears. feels like she is in a bubble. started months ago. hasnt been able to get back in. denies dimished hearing. HEADACHE sinus headache. SORE THROAT when she woke up. Depression: Denies : COUNSELING. Denies : PSYCHIATRIST. DEPRESSION F/U was prescribed sertraline 1 year ago. very happy on current dose. needs refill. helps greatly with anxiety. MEDICATIONS sertraline. Lesion: right upper back. lesion present 5-6 [...] tab(s) orally 2 times a day , Medication List reviewed and reconciled with the patient * Allergies: N.K.D.A. Objective: * Vitals: Temp: 98.6, RR: 18, HR: 85, BP: 110/62, O2 Sat: 98% RA, Ht: 67.5 in, [...] infection, unspecified type - J06.9 (Primary) 2. Moderate recurrent major depression - F33.1 3. Neoplasm of uncertain behavior of skin - D48.5 Plan: * Treatment: 2. Moderate recurrent major depression Refill SERTRALINE tablet, 50 mg, 1 tab(s), orally, once a day, 90 days, 90, Refills 3. 3. Neoplasm of uncertain behavior of skin Notes: offered patient biopsy. wants to think about * Follow Up: 1 Year * Billing Information: * Visit Code: 20287 Office Visit, New Pt., Level 3. * Procedure Codes: * Sign off status: Pending * Provider: Marcial Lindsay DO Date: 08/10/2024 History and Physical Notes * HPI (History of Present Illness) Category Sub-Category Detail Notes Category Not es ENT SORE THROAT when she woke up EAR PAIN both ears. feels lik e she is in a bubble. started months ago. hasnt been able to get back in. denies dimished hearing COUGH dry cough HEADACHE sinus headache Depression DEPRESSION F/U was prescribed s ertraline 1 year ago. very happy on current dose. needs refill. helps greatly with anxiety PSYCHIATRIST COUNSELING MEDICATIONS sertraline Lesion right upper destiney k. lesion present [...]
--- OUTSIDE RECORDS SUMMARY | 2024-10-04 19:51 | XMS_ITS | Continuity of Care Document ---
Author Organization [facility] Address [address] [place] [address] Phone Care Team Providers Care Wireless Sales Associate Name Role Phone Unavailable Unavailable Unavailable Advance Directives Directive Yes / No Effective Date File Name No Information Encounters Encounter Description Practice Location Reason(s) For Visit Diagnoses Date Provider Providers Copied on Encounter [facility], [address] [facility], [place], [place], [id number], [place] tel:[phone] [facility] OBS OUTPATIENT No Information No Information Referring Provider: BERNADINE REED, [address] [place] [address] [address], [place], [address]. Family History Family Member Type Diagnosis Age At Onset No Information Payers Payer name Insurance type Covered constitution party ID Zacarias barclay(s) BRIAN POS [id number] CI [id number] Social History Type Description Quantity Date Captured Comments Sex Female Smoking Status No Information Chief Complaint And Reason For Visit No Information History Of Present Illness Encounter Date Complaint History Of Prese nt Illness No Information Instructions Date Instruction Additional Infor mation No Information Assessments Type Assessment Date No Information
[2024-10-04 20:01] VITALS: BP 126/68; PULSE 72; RESP 18; TEMP 36.6; O2SAT 99
--- NOTE | 2024-10-04 20:10 | ED.UPPEXIN ---
HPI - Extremity Injury (Upper) General Chief Complaint: Extremity Injury, Upper Stated Complaint: Injury to right wrist picking up logs Time Seen by Provider: 10/04/24 20:05 History of Present Illness HPI narrative: 28-year-old otherwise healthy female presenting to the emergency room with right wrist pain. Patient states that she was doing some yd work and moving treat logs several times yesterday and felt some pain start developing her right ulnar aspect of the right wrist. Patient states she went to sleep and did not think much of it but woke up with some swelling in the same areas her pain and came to the ER. She has tried some ibuprofen and ice without significant relief. Denies any major injuries or trauma. She has good telephone operator receptionist strength but feels some popping sensations in her wrist when she rotates it with pain being exacerbated with supination and pronation at the wrist joint. No elbow pain, no finger pain or neuropathy. No overlying skin changes or abrasions. Related Data Home Medications ?Medication ?Instructions ?Recorded ?Confirmed ?Last Taken ?Type melatonin 5 mg tablet 5 mg PO HS 03/12/23 03/08/24 Unknown History Allergies Allergy/AdvReac Type Severity Reaction Status Date / Time No Known Allergies Allergy Verified 10/04/24 20:20 Review of Systems Review of Systems: As reviewed above in HPI [facility] Past Medical History Medical History (Updated 10/04/24 @ 21:00 by Mateo Medrano MD) Healthy adolescent Surgical History Surgical History No pertinent past surgical history Family History Family History Grandparent Diabetes mellitus Mother Eczema Grandparent Lung cancer Grandparent Heart disease Social History Social History Smoking status: Light tobacco smoker Tobacco type: cigarettes Second hand tobacco smoke exposure: No Substance use: never Do You Feel Safe in your Home?: Yes Lack of Transportation: No Lack of Food: Never True Current Housing: I Have Housing Concerned About Future Housing: No Difficulty Paying Gas/Electric Bills: No Difficulty Paying for Meds: No Currently Unemployed: No Education: High School Diploma/GED Difficulty w/ Childcare or Family Care: No Gender identity (if verbalized by the patient): Female Spiritual care concerns: No Exam Narrative: GENERAL: [Well-appearing, well-nourished, and in no acute distress.] HEAD: [Normocephalic, atraumatic.] EYES: [PERRLA and EOMI.] ENT: Nares clear, no rhinorrhea or epistaxis. Mucous membranes moist. NECK: Supple. CHEST: [Clear to auscultation. No respiratory distress.] HEART: [Regular rate and rhythm]. No murmur heard. [Normal peripheral pulses.] ABDOMEN: [Soft, nondistended], [nontender], [No rigidity or guarding] EXTREMITIES: Normal range of motion. [No edema.] Linesperson strength 5/5 bilaterally, able to oppose each digit, able to radial and ulnar deviate the wrist without difficulty, supination and pronation elicits pain in the ulnar aspect of the right wrist as well as some point tenderness to palpation in the distal right ulna without any overlying skin changes aside from some minor swelling. No abrasions or breakdown, no punctate wounds. SKIN: Warm, dry, no rash. NEURO: [No focal deficits]. Alert and oriented [x3.] PSYCH: [Normal mood and affect.] Course Vital Signs Vital signs: Vital Signs Temperature 36.6 C 10/04/24 20:01 Pulse Rate 72 10/04/24 20:01 Respiratory Rate 18 10/04/24 20:01 Blood Pressure 126/68 10/04/24 20:01 Pulse Oximetry 99 10/04/24 20:01 Temperature 36.6 C 10/04/24 20:01 Pulse Rate 72 10/04/24 20:01 Respiratory Rate 18 10/04/24 20:01 Blood Pressure 126/68 10/04/24 20:01 Pulse Oximetry 99 10/04/24 20:01 MDM - Extremity Injury (Upper) MDM Narrative Medical decision making narrative: 28-year-old otherwise healthy female presenting with right wrist injury. She states she is doing repetitive motions including picking up treat logs and yd work yesterday and started having some pain in her ulnar right wrist. Went to bed and woke up with some more swelling and pain in the area. Tried ice packs and ibuprofen without significant relief. On examination she does have some mild swelling without any overlying skin changes and pain in the distal right ulnar which is exacerbated by pronation and supination but she has good muscle strength, tone and range of motion. Suspicion presently is for potential ligamentous or muscular strain/sprain with low suspicion for occult injury or fracture. Low suspicion dislocation or subluxation. X-rays of the right wrist were obtained she was given Naprosyn for analgesia. Patient will have to follow-up with her primary care provider after imaging studies and workup here which she verbalized understanding. X-rays were negative for any acute osseous abnormality. Patient will be sent home with a course of anti-inflammatories and encouraged to ice and compressive with an Carlos wrap. She was given follow-up with her PCP. Medical Records Attestation: I reviewed the patient's medical records. Imaging Data Attestation: I personally reviewed and interpreted this imaging study as follows: My impression: Impressions Wrist X-Ray 10/04/24 20:32 IMPRESSION: No acute osseous abnormality right wrist. Discharge Plan Discharge Clinical Impression: Sprain of wrist joint Patient Disposition: Home Condition: Stable Instructions: Antibiotic Form, Wrist Sprain (ED) Additional Instructions: Your x-ray showed no acute abnormalities or problems with the bony structures or major soft tissues and your symptoms are very consistent with a sprain on the ulnar aspect of your right wrist. This will be treated with a combination of anti-inflammatories including Naprosyn, Tylenol as needed, compression with an Carlos wrap and ice up to 20 minutes at a time for the 1st 2 days and then you can start adding heat packs if the symptoms persist. Follow-up with regular doctor. Return with any emergencies. Patient Language: Bahraini Prescriptions: New naproxen 500 mg tablet 500 mg PO BID PRN (Reason: pain) 7 Days Qty: 14 0RF No Action melatonin 5 mg Tablet 5 mg PO HS triamcinolone acetonide 0.1 % cream 1 applic topical BID Qty: 30 0RF sertraline 50 mg tablet 50 mg PO DAILY Qty: 90 2RF Follow-up/Referrals: Martir Bhandari DO [Primary Care Provider] - Time of Disposition: 21:00
[2024-10-04] MEDS: NAPROXEN 500 MG TABLET PO (20:19)
--- OUTSIDE RECORDS SUMMARY | 2024-10-04 20:29 | XMS_ITS | Continuity of Care Document ---
Author Organization [facility] Address [address] [place] [address] Phone Care Team Providers Care Hospital Cleaner Name Role Phone Unavailable Unavailable Unavailable Advance Directives Directive Yes / No Effective Date File Name No Information Encounters Encounter Description Practice Location Reason(s) For Visit Diagnoses Date Provider Providers Copied on Encounter [facility], [address] [facility], [place], [place], [id number], [place] tel:[phone] [facility] OBS OUTPATIENT No Information No Information Referring Provider: BERNADINE REED, [address] [place] [address] [address], [place], [address]. Family History Family Member Type Diagnosis Age At Onset No Information Payers Payer name Insurance type Covered alliance party ID Zacarias barclay(s) BRIAN POS [id number] CI [id number] Social History Type Description Quantity Date Captured Comments Sex Female Smoking Status No Information Chief Complaint And Reason For Visit No Information History Of Present Illness Encounter Date Complaint History Of Prese nt Illness No Information Instructions Date Instruction Additional Infor mation No Information Assessments Type Assessment Date No Information
--- OUTSIDE RECORDS SUMMARY | 2024-10-04 20:29 | XMS_ITS | Clinical Summary ---
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
[2024-10-04 21:13] VITALS: BP 116/73; PULSE 75; RESP 16; TEMP 36.4; O2SAT 98
== END 2024-10-04 21:10 | disposition home or self-care (01) ==
PROVIDERS: Emergency Provider Student in an Organized Health Care Education/Training Program; PCP Internal Medicine
DX: S63.501A Unspecified sprain of right wrist, initial encounter (principal); F17.210 Nicotine dependence, cigarettes, uncomplicated; Z79.899 Other long term (current) drug therapy; X50.3XXA Overexertion from repetitive movements, initial encounter
CPT/HCPCS: 73110; 99283; A9270